=== PATIENT | male | born 2000 | race Caucasian/White ===

== ENCOUNTER 2020-12-08 10:37 | Emergency (ER) | payer BC ==
[~2020-12-08] VITALS: Ht 177.8 cm; Wt 77.3 kg
[2020-12-08 10:55] VITALS: TEMP 97.7
[2020-12-08 11:33] LABS: BASO % 0.2 % (0.0-2.0); EOS # 0.1 K/mm3 (0.0-0.7); EOS % 1.7 % (0-4.0); GRAN # 4.5 K/mm3 (1.4-6.5); GRAN % 68.9 % (42.2-75.2); HEMATOCRIT 47.6 % (42.0-52.0); HEMOGLOBIN 16.6 g/dl (13.5-18.0); LYMPH # 1.4 K/mm3 (1.2-3.4); MEAN CELL VOLUME 88 fl (80.0-100.0); MEAN CORPUSCULAR HEMOGLOBIN 31 pg (27.0-31.0); MEAN CORPUSCULAR HGB CONC 35 g/dl (33.0-37.0); MEAN PLATELET VOLUME 8.8 fl (7.4-10.4); MONO # 0.5 K/mm3 (0.1-0.6); MONO % 6.9 % (1.7-9.3); PLATELET COUNT 269 K/mm3 (130-400); RED BLOOD COUNT 5.43 M/mm3 (4.20-5.60); REDCELL DISTRIBUTION WIDTH-CV 12.1 % (11.5-14.5)
[2020-12-08 12:19] LABS: ALANINE AMINOTRANSFERASE 21 U/L (0-55); ALBUMIN 4.5 gm/dL (3.5-5.0); ALKALINE PHOSPHATASE 61 U/L (40-150); AST,SGOT 17 U/L (5-34); BILIRUBIN,TOTAL 0.9 mg/dL (0.2-1.2); BLOOD UREA NITROGEN 9 mg/dL (9-21); CALCIUM 9.7 mg/dL (8.4-10.2); CARBON DIOXIDE 27 mmol/L (22-29); CHLORIDE 106 mmol/L (98-107); CREATININE, serum 1.03 mg/dL (0.72-1.25); GLUCOSE 90 mg/dL (70-99); POTASSIUM 4.3 mmol/L (3.5-4.5); SODIUM 139 mmol/L (136-145); TOTAL PROTEIN 7.1 gm/dL (6.2-8.1)
[2020-12-08 12:23] LABS: ANION GAP 6 mmol/L (7-16)
[2020-12-08 12:24] LABS: HIV 1/2 Antibodies Non-Reactive; HIV-1p24 Antigen Non-Reactive
[2020-12-08] MEDS ORDERED: DESYREL 100MG100 MG PO (12:24)
[2020-12-08] MEDS ORDERED: KLONOPIN 0.5MG0.5 MG PO (12:24)
[2020-12-08 12:28] LABS: TSH w REFLEX 0.507 uIU/mL (0.350-4.940)
[2020-12-08 12:33] LABS: TROPONIN-I < 0.010 ng/mL (0.00-0.033)
[2020-12-08] MEDS ORDERED: ZOFRAN ODT4 MG PO (12:41)
[2020-12-08 12:51] VITALS: BP 122/70; PULSE 79
== END 2020-12-08 12:52 | disposition home or self-care (01) ==
LOC: COL.ER 10:37
PROVIDERS: Emergency Medicine
DX: R53.81 Other malaise (principal); F41.9 Anxiety disorder, unspecified; F32.A Depression, unspecified; Z20.822 Contact with and (suspected) exposure to COVID-19; Z79.899 Other long term (current) drug therapy
CPT/HCPCS: J2405; J7030